=== PATIENT | male | born 1975 | race Caucasian/White ===

== ENCOUNTER 2020-08-14 16:49 | Emergency (ER) | payer OTHER ==
[~2020-08-14 16:49] MED LIST: 3IN1 COMMODE; AUGMENTIN 875-1 EACH PO; CELEXA20 MG PO; CHANTIX1 EACH PO; CHANTIX1 MG PO; CYANOCOBAL1000 MCG/1 IM; CYMBALTA60 MG PO; DICLOFENAC POTA50 MG PO; ELAVIL25 MG PO; ELAVIL50 MG PO; FENOFIBRATE145 MG PO; GLUCOPHAGE1000 MG PO; LANSOPRAZOLE15 MG PO; LANTUS100 UNIT/1 SC; LIPITOR40 MG PO; LISINOPRIL40 MG PO; LO-DOSE ASPIRIN81 MG PO; LOPID600 MG PO; LOPRESSOR50 MG PO; LOVAZA1 GM PO; LYRICA200 MG PO; MAG-OXIDE 400M400 MG PO; MELATONIN5 M2 PO; MOBIC7.5 MG PO; NEURONTIN600 MG PO; NORCO 5/3251 EACH PO; OMEPRAZOLE40 MG PO; ONDANSETRON HCL4 MG PO; PERCOCET 10-321 EACH PO; PERCOCET 7.5/321 TAB PO; POLY-IRON150 MG PO; PREDNISONE 20MG20 MG PO; PRILOSEC20 MG PO; REQUIP0.25 MG PO; TRESIBA FL200 UNIT/1 SC; TRULICITY1.5 MG/0.5 SC; VIBRAMYCIN100 MG PO; VITAMIN D250 MCG PO; ZOFRAN4 MG PO
[2020-08-14 18:04] LABS: BASOPHIL 0.7 % (0-2); EOSINOPHIL 0.1 % (0-5); HGB 11.8 g/dl (13.2-18.0); LYMPHOCYTE 9.5 % (15-48); MCH 26.9 pg (25.0-31.0); MCHC 31.1 g/dL (32.0-36.0); MCV 86.8 fL (78.0-100.0); MONOCYTE 7.2 % (0-12); MPV 11.9 fL (6.0-9.5); NEUTROPHIL 81.9 % (41-80); NRBC 0; PLT 159 K/uL (150-400); RBC 4.38 M/uL (4.70-6.00); RDW 20.2 % (11.5-14.0); WBC 10.5 K/uL (4.0-10.5)
[2020-08-14 18:06] LABS: ALBUMIN 3.7 g/dL (3.4-5.0); BILIRUBIN - TOTAL 0.3 mg/dL (0.2-1.0); BUN/CREAT RATIO (CALC) 20.5 RATIO; CREATININE 2.1 mg/dL (0.67-1.17); GLOBULIN (CALCULATION) 5.3 g/dL; POTASSIUM 4.9 mmol/L (3.5-5.1)
[2020-08-14 21:42] LABS: BILIRUBIN NEGATIVE (NEGATIVE); BLOOD 1+ Ery/uL (NEGATIVE); CLARITY CLEAR (CLEAR); COLOR YELLOW (YELLOW); GLUCOSE (U) NORMAL (NORMAL); LEUKOCYTES NEGATIVE Leu/uL (NEGATIVE); NITRITE NEGATIVE (NEGATIVE); PROTEIN 1+ mg/dL (NEGATIVE); SPECIFIC GRAVITY 1.025 (1.001-1.030); UROBILINOGEN 0.2 mg/dL (0.2-1.0); pH 5.5 (5.0-9.0)
[2020-08-14 21:49] LABS: BACTERIA TRACE; MUCOUS TRACE; URINARY WBC RARE
[2020-08-15] MEDS ORDERED: KEFLEX250 MG PO (00:02)
[2020-08-15] MEDS ORDERED: ZOFRAN4 M1 PO (00:02)
== END 2020-08-15 00:21 | disposition home or self-care (01) ==
LOC: FER 16:49
PROVIDERS: Nurse Practitioner Family
DX: T87.89 Other complications of amputation stump (principal); S82.831A Other fracture of upper and lower end of right fibula, initial encounter for closed fracture; R10.84 Generalized abdominal pain; R11.2 Nausea with vomiting, unspecified; E11.9 Type 2 diabetes mellitus without complications; I10 Essential (primary) hypertension; F17.210 Nicotine dependence, cigarettes, uncomplicated; Z89.511 Acquired absence of right leg below knee; Z86.14 Personal history of Methicillin resistant Staphylococcus aureus infection; Z88.5 Allergy status to narcotic agent; Z85.038 Personal history of other malignant neoplasm of large intestine; Z89.512 Acquired absence of left leg below knee; Y83.6 Removal of other organ (partial) (total) as the cause of abnormal reaction of the patient, or of later complication, without mention of misadventure at the time of the procedure
CPT/HCPCS: 36415; 73560; 80053; 81001; 85025; 87070; 87077; 87186; 87205; J1170; J2405; J2550; J7030

== ENCOUNTER 2020-08-18 07:26 | Emergency (ER) | payer OTHER ==
[~2020-08-18 07:26] MED LIST changes: +KEFLEX250 MG PO; +ZOFRAN4 M1 PO
[2020-08-18 08:43] LABS: BASOPHIL 0.7 % (0-2); EOSINOPHIL 0.7 % (0-5); HCT 30.8 % (42.0-52.0); HGB 9.9 g/dl (13.2-18.0); LYMPHOCYTE 9.4 % (15-48); MCH 27.3 pg (25.0-31.0); MCHC 32.1 g/dL (32.0-36.0); MCV 84.8 fL (78.0-100.0); MONOCYTE 6.5 % (0-12); MPV 11.4 fL (6.0-9.5); NEUTROPHIL 82.3 % (41-80); NRBC 0; PLT 149 K/uL (150-400); RBC 3.63 M/uL (4.70-6.00); RDW 19.9 % (11.5-14.0); WBC 9.4 K/uL (4.0-10.5)
[2020-08-18 09:01] LABS: ALBUMIN 3.2 g/dL (3.4-5.0); BILIRUBIN - TOTAL 0.3 mg/dL (0.2-1.0); BUN/CREAT RATIO (CALC) 10.4 RATIO; CREATININE 3.96 mg/dL (0.67-1.17); GLOBULIN (CALCULATION) 5.1 g/dL; POTASSIUM 3.9 mmol/L (3.5-5.1); TOTAL PROTEIN 8.3 g/dL (6.4-8.2)
== END 2020-08-18 15:25 | disposition other institution (70) ==
LOC: FER 07:26
PROVIDERS: Emergency Medicine
DX: T81.41XA Infection following a procedure, superficial incisional surgical site, initial encounter (principal); L08.9 Local infection of the skin and subcutaneous tissue, unspecified; N17.9 Acute kidney failure, unspecified; E10.9 Type 1 diabetes mellitus without complications; I10 Essential (primary) hypertension; Z88.5 Allergy status to narcotic agent; Z89.511 Acquired absence of right leg below knee; X58.XXXA Exposure to other specified factors, initial encounter; Z20.822 Contact with and (suspected) exposure to COVID-19
CPT/HCPCS: 36415; 71045; 73590; 80053; 85025; 87040; 87070; 87077; 87205; J2405; J3370; J7030; J7050; U0002

== ENCOUNTER 2021-02-22 08:19 | Emergency (ER) | payer MEDICARE, OTHER ==
[2021-02-22] MEDS ORDERED: AZITHROMYCIN250 MG PO (09:40)
== END 2021-02-22 11:10 | disposition home or self-care (01) ==
LOC: FER 08:19
DX: M21.332 Wrist drop, left wrist (principal); J18.9 Pneumonia, unspecified organism; T81.89XA Other complications of procedures, not elsewhere classified, initial encounter; T87.89 Other complications of amputation stump; E11.9 Type 2 diabetes mellitus without complications; I10 Essential (primary) hypertension; F17.210 Nicotine dependence, cigarettes, uncomplicated; K21.9 Gastro-esophageal reflux disease without esophagitis; Z88.5 Allergy status to narcotic agent; Z79.899 Other long term (current) drug therapy; Z79.84 Long term (current) use of oral hypoglycemic drugs; Y83.8 Other surgical procedures as the cause of abnormal reaction of the patient, or of later complication, without mention of misadventure at the time of the procedure
CPT/HCPCS: 72125; 73110